=== PATIENT | male | born 1960 | race Caucasian/White ===

== ENCOUNTER → 2019-08-12 | Outpatient (CLI) | payer OTHER | LOC: SJCVCIMAG 09:49 | DX: R07.9 Chest pain, unspecified (principal); R00.1 Bradycardia, unspecified; E78.5 Hyperlipidemia, unspecified ==

== ENCOUNTER → 2021-06-03 | Outpatient (CLI) | payer OTHER | LOC: SJCVCIMAG 14:15 | PROVIDERS: ATTEND Internal Medicine Cardiovascular Disease | DX: R06.00 Dyspnea, unspecified (principal) ==